=== PATIENT | female | born 1990 | race Caucasian/White ===

== ENCOUNTER 2018-03-28 14:32 | Emergency (ER) | payer MEDICAID, OTHER ==
[~2018-03-28] VITALS: Ht 160 cm; Wt 111.1 kg
--- NOTE | 2018-03-28 14:49 | NUR ---
PT AMBULATED TO ER BED 03
--- NOTE | 2018-03-28 14:49 | NUR ---
INSTRUCTED TO COME IN FROM OUTSIDE CLINIC FOR POSS I&D OF ABSCESS POSTERIOR NECK X 5 DAYS PLACED ON KEFLEX 03/24/2018; STATES HAS NOT NOTICIED CHANGE TO ABSCESS HX--HTN RX---LISINOPRIL, HEMP OIL
--- NOTE | 2018-03-28 15:36 | NUR ---
Patient discharged with v/s stable. Written and verbal after care instructions given and explained. Patient verbalized understanding. Ambulatory with steady gait. All questions addressed prior to discharge. Advised to follow up with PMD.
== END 2018-03-28 15:36 | disposition home or self-care (01) ==
LOC: MED 14:32
DX: L02.11 Cutaneous abscess of neck (principal); Z88.3 Allergy status to other anti-infective agents; Z88.2 Allergy status to sulfonamides
CPT/HCPCS: 99281

== ENCOUNTER 2018-05-27 20:04 | Emergency (ER) | payer OTHER ==
[~2018-05-27] VITALS: Ht 160 cm; Wt 107.0 kg
[2018-05-27 20:10] VITALS: BP 143/85
--- NOTE | 2018-05-27 20:15 | NUR ---
27/F CAME IN W C/O SUDDEN LEFT FACIAL NUMBNESS WITH LEFT BLURRY VISION X 30MINS [employer]. SYMMETRICAL SMILE, NO LEFT FACIAL WEAKNESS NOTED, TONGUE MIDLINE. DENIES TRAUMA, RECENT ILLNESS
--- NOTE | 2018-05-27 20:17 | NUR ---
PT TAKEN TO BED 10
--- NOTE | 2018-05-27 20:59 | NUR ---
Dr. Chavez evaluating patient at bedside.
[2018-05-27] MEDS ORDERED: KETOROLAC 60 MG/2 ML VIAL IM ONE (21:05)
[2018-05-27 21:32] VITALS: BP 129/72
== END 2018-05-27 21:27 | disposition home or self-care (01) ==
LOC: MED 20:04
DX: R51 Headache (principal); R20.0 Anesthesia of skin; I10 Essential (primary) hypertension; Z88.1 Allergy status to other antibiotic agents; Z88.2 Allergy status to sulfonamides
CPT/HCPCS: 81002; 81025; 96372; 99283; J1885

== ENCOUNTER 2018-06-25 23:55 | Emergency (ER) | payer OTHER ==
[~2018-06-25] VITALS: Ht 160 cm; Wt 103.4 kg
[2018-06-25 23:58] VITALS: BP 144/86
[2018-06-26] MEDS: KETOROLAC 60 MG/2 ML VIAL IM ONE (00:40)
[2018-06-26 00:57] VITALS: BP 135/82
== END 2018-06-26 00:57 | disposition home or self-care (01) ==
LOC: MED 23:55
DX: R07.89 Other chest pain (principal); M54.9 Dorsalgia, unspecified; I10 Essential (primary) hypertension; Z88.1 Allergy status to other antibiotic agents; Z88.2 Allergy status to sulfonamides
CPT/HCPCS: 81002; 81025; 93005; 96372; 99283; J1885

== ENCOUNTER 2018-08-11 21:04 | Emergency (ER) | payer OTHER ==
[~2018-08-11] VITALS: Ht 160 cm; Wt 100.2 kg
[2018-08-11 21:08] VITALS: BP 123/77
[2018-08-11] MEDS ORDERED: HYDR-5 PO (21:12)
--- NOTE | 2018-08-11 21:12 | NUR ---
PT BIB SELF C/O HEAD PAIN 1X HOUR AND HALF AGO; SHARP ONE TIME FRONTAL HEAD PAIN 02/14. +DIZZINESS INTERMITTENLY, W/MOVEMENT AND RESTING X1 WEEK. DENIES N/V/D. PT STATES TO GETTING HER PERIOD FOR THE FIRST TIME YESTURDAY, MILD RED BLEEDING. AAOX4. PUPIL REACTIVE AND EQUAL. DENIES FEVER/CHILLS. EXTREMETIES EQUAL IN STRENGTH BILARTERALLY. ER MD MADE AWARE OF PT STATUS. WILL CONTINUE TO MONITOR. SAFETY PRECAUTIONS IN PLACE. PMH: HTN, DEPRESSION, Hidradenitis suppurativa RX: LISINOPRIL, CBD OIL
--- NOTE | 2018-08-11 21:45 | NUR ---
ABG ATTEMPT X [address] THERE[address] JAY AWARE
--- NOTE | 2018-08-11 21:45 | NUR ---
pt ambulated to bed 10
[2018-08-12 00:04] VITALS: BP 126/58
== END 2018-08-12 00:05 | disposition home or self-care (01) ==
LOC: MED 21:04
DX: R51 Headache (principal); I10 Essential (primary) hypertension; F32.9 Major depressive disorder, single episode, unspecified; Z79.899 Other long term (current) drug therapy; Z88.1 Allergy status to other antibiotic agents; Z88.8 Allergy status to other drugs, medicaments and biological substances
CPT/HCPCS: 99283

== ENCOUNTER 2020-01-27 12:50 | Emergency (ER) | payer OTHER ==
[~2020-01-27] VITALS: Ht 152.4 cm; Wt 116.1 kg
[~2020-01-27 12:50] MED LIST: HYDR-2849 PO
[2020-01-27 12:55] VITALS: BP 136/68
--- NOTE | 2020-01-27 13:09 | NUR ---
29 Y/O F C/C ABSCESS ON BACK OF NECK X 2 DAYS. PER PT HX OF PREVIOUS ABSCESSES. SKIN AREA NOTED WITH ERYTHEMA. NO OTHER S/S. ALLERGIES DOXYCYCLINE,BACTRIM. HX HTN,ANXIETY,DEPRESSION. RX LISINOPRIL,CITRILINE,BUSPAR. NO NVD. SIDE RAIL X1.
[2020-01-27 15:02] VITALS: BP 132/62
--- NOTE | 2020-01-27 15:02 | NUR ---
Patient discharged with v/s stable. Written and verbal after care instructions given and explained. Patient alert, oriented and verbalized understanding of instructions. Ambulatory with steady gait. All questions addressed prior to discharge. ID band removed. Patient advised to follow up with PMD. Rx of TYLENOL,CLINDAMYCIN given. Patient educated on indication of medication including possible reaction and side effects. Opportunity to ask questions provided and answered.
== END 2020-01-27 15:02 | disposition home or self-care (01) ==
LOC: MED 12:50
DX: L73.2 Hidradenitis suppurativa (principal); F41.9 Anxiety disorder, unspecified; I10 Essential (primary) hypertension; Z88.1 Allergy status to other antibiotic agents; Z88.2 Allergy status to sulfonamides; Z88.8 Allergy status to other drugs, medicaments and biological substances
CPT/HCPCS: 99283